=== PATIENT | female | born 1950 | race Caucasian/White ===

== ENCOUNTER → 2022-07-24 | Outpatient (CLI) | payer MEDICARE, MEDICAID ==
[~2022-07-24] MED LIST: ASPIRIN CHEWABL81 MG PO; ATORVASTATIN CA20 M1 PO; BASAG SOL SQ; BIOTIN5000 MC1 SL; CITALOPRAM20 MG PO; FAMOTIDINE20 M1 PO; GLIPIZIDE10 M2 PO; VITAMIN D3125 MCG PO
== END | disposition home or self-care (01) ==
LOC: RAD 13:13
PROVIDERS: ATTEND Nurse Practitioner Family
DX: M25.562 Pain in left knee (principal)

== ENCOUNTER 2022-07-25 17:43 | Emergency (ER) | payer MEDICARE, MEDICAID ==
[~2022-07-25] VITALS: Ht 157.4 cm; Wt 58.1 kg
[2022-07-25 19:34] LABS: BASO % 0.4 % (0.0-1.0); EOS # 0.2 10*3/uL (0.0-0.4); EOS % 2.2 % (1.0-4.0); HEMATOCRIT 34.8 % (37.0-47.0); LYMPH # 2.1 10*3/uL (1.3-4.4); LYMPH % 25.8 % (27.0-41.0); MEAN CELL VOLUME 86.4 fl (81.0-99.0); MEAN CORPUSCULAR HGB 28.8 pg (27.0-31.0); MEAN CORPUSCULAR HGB CONC 33.3 g/dl (33.0-37.0); MEAN PLATELET VOLUME 10.4 fl (9.6-12.3); MONO # 0.4 10*3/uL (0.1-1.0); MONO % 5.4 % (3.0-9.0); NEUT # 5.3 10*3/uL (2.3-7.9); NEUT % 65.7 % (47.0-73.0); PLATELET COUNT AUTOMATED 222 10*3/uL (130-400); RED BLOOD COUNT 4.03 10*6/uL (4.10-5.10); RED CELL DISTRI WIDTH 12.5 % (0-14.5); WHITE BLOOD COUNT 8.1 10*3/uL (4.8-10.8)
[2022-07-25] MEDS ORDERED: GLIPIZIDE10 M2 PO (19:41)
[2022-07-25] MEDS ORDERED: CITALOPRAM20 MG PO (19:41)
[2022-07-25] MEDS ORDERED: ATORVASTATIN CA20 M1 PO (19:42)
[2022-07-25] MEDS ORDERED: FAMOTIDINE20 M1 PO (19:42)
[2022-07-25] MEDS ORDERED: ASPIRIN CHEWABL81 MG PO (19:43)
[2022-07-25] MEDS ORDERED: BIOTIN5000 MC1 SL (19:44)
[2022-07-25] MEDS ORDERED: VITAMIN D3125 MCG PO (19:45)
[2022-07-25] MEDS ORDERED: BASAG SOL SQ (19:45)
[2022-07-25 19:49] LABS: CREATININE 1.91 mg/dL (0.55-1.02); POTASSIUM 4.8 mmol/L (3.5-5.1); TOTAL PROTEIN 6.9 gm/dL (6.4-8.2)
[2022-07-25 21:47] LABS: BILIRUBIN Negative (Negative); BLOOD Negative (Negative); CLARITY Clear (Clear); COLOR Yellow (Yellow); GLUCOSE 3+ (Negative); KETONE Negative (Negative); LEUKO ESTERASE Negative (Negative); NITRITE Negative (Negative); PH 5.5 (4.5-8.0); SPECIFIC GRAVITY 1.025 (1.001-1.030); UROBILINOGEN 0.2 E.U./dl (0.0-1.0)
[2022-07-25 22:08] LABS: RBC 0-2 rbc/hpf (0-2)
[2022-07-25 23:34] LABS: CREATININE 1.53 mg/dL (0.55-1.02)
[2022-07-25 23:56] LABS: POTASSIUM 3.3 mmol/L (3.5-5.1)
== END 2022-07-26 00:30 | disposition home or self-care (01) ==
LOC: ED 17:43
PROVIDERS: Nurse Practitioner Family
DX: E11.65 Type 2 diabetes mellitus with hyperglycemia (principal); Z20.822 Contact with and (suspected) exposure to COVID-19; N17.9 Acute kidney failure, unspecified; E87.8 Other disorders of electrolyte and fluid balance, not elsewhere classified; D64.9 Anemia, unspecified; R89.1 Abnormal level of hormones in specimens from other organs, systems and tissues; Z79.899 Other long term (current) drug therapy; Z79.82 Long term (current) use of aspirin; Z79.4 Long term (current) use of insulin